=== PATIENT | female | born 1970 | race Caucasian/White ===

== ENCOUNTER 2016-12-26 18:54 | Emergency (ER) | payer BC ==
[~2016-12-26] VITALS: Ht 157.5 cm; Wt 98.1 kg
[2016-12-26 19:45] VITALS: BP 100/58
[2016-12-26 20:12] LABS: Urine Bilirubin Negative (Negative); Urine Blood 2+ /uL (Negative); Urine Ca Oxalate Crystal MANY (None Seen); Urine Color Yellow (Yellow); Urine Glucose Normal (Normal); Urine Ketone Negative (Negative); Urine Mucus MODERATE (None Seen); Urine Nitrite Negative (Negative); Urine RBC 43 /hpf (0 - 4); Urine Squamous Epithelial Cell FEW /hpf (<5); Urine Urobilinogen Normal (Negative)
[2016-12-26 20:50] LABS: Basophils # (auto) 0.1 uL; Basophils % (auto) 0.5 % (0.0-2.0); Eosinophils # (auto) 0.4 uL; Eosinophils % (auto) 2.6 % (0.0-7.0); Hematocrit 40.8 % (36.0-46.0); Hemoglobin 13.1 g/dL (12.2-16.2); Lymphocytes # (auto) 2.5 uL; Lymphocytes % (auto) 16.6 % (10.0-50.0); Mean Corpuscular Hemoglobin 27.4 pg (28.0-32.0); Mean Corpuscular Hgb Conc. 32.1 g/dL (32.0-36.0); Mean Corpuscular Volume 85.4 fL (80.0-100.0); Mean Platelet Volume 7.9 fL (7.4-10.4); Monocytes # (auto) 1.4 uL; Monocytes % (auto) 9.1 % (0.0-12.0); Neutrophils # (auto) 10.6 uL; Neutrophils % (auto) 71.2 % (37.0-80.0); Platelet Count (auto) 412 10^3/uL (140-450); Red Cell Distribution Width 15.3 % (11.6-16.0); White Blood Cell 14.9 10^3/uL (4.4-10.8)
[2016-12-26 20:52] LABS: Albumin 3.5 g/dL (3.4-5.0); BUN/Creatinine Ratio 16.5; Potassium 4.1 mmol/L (3.5-5.1)
[2016-12-26 20:55] LABS: Bilirubin, Total 0.1 mg/dL (0.2-1.0); Total Protein 7.8 g/dL (6.4-8.2)
== END 2016-12-26 23:24 | disposition left against medical advice (07) ==
LOC: ER 19:06
DX: N61.1 Abscess of the breast and nipple (principal); Z53.21 Procedure and treatment not carried out due to patient leaving prior to being seen by health care provider
CPT/HCPCS: 36415; 80053; 80307; 81001; 81025; 85025; 87040

== ENCOUNTER 2016-12-28 16:13 | Inpatient (IN) | payer BC, MEDICAID ==
[~2016-12-28] VITALS: Ht 157.5 cm; Wt 104.0 kg
[2016-12-28] MEDS ORDERED: SODIUM CHLORIDE 0.9% 1,000 ML IV ONE (18:10)
[2016-12-28] MEDS ORDERED: HYDROmorphone HCL 2 MG/ML VL IV ONE ×2 (18:15→21:30)
[2016-12-28] MEDS ORDERED: ONDANSETRON HCL 4 MG/2 ML VIAL IV ONE (18:15)
[2016-12-28] MEDS ORDERED: CLINDAMYCIN 600MG IV 50 ML IV ONE (18:15)
[2016-12-28 19:19] LABS: Basophils # (auto) 0 uL; Basophils % (auto) 0.3 % (0.0-2.0); Eosinophils # (auto) 0.5 uL; Eosinophils % (auto) 4.9 % (0.0-7.0); Hematocrit 37.5 % (36.0-46.0); Hemoglobin 12.2 g/dL (12.2-16.2); Lymphocytes # (auto) 2.1 uL; Lymphocytes % (auto) 21.9 % (10.0-50.0); Mean Corpuscular Hemoglobin 27.7 pg (28.0-32.0); Mean Corpuscular Hgb Conc. 32.4 g/dL (32.0-36.0); Mean Corpuscular Volume 85.3 fL (80.0-100.0); Mean Platelet Volume 7.8 fL (7.4-10.4); Monocytes # (auto) 1.1 uL; Monocytes % (auto) 12.1 % (0.0-12.0); Neutrophils # (auto) 5.8 uL; Neutrophils % (auto) 60.8 % (37.0-80.0); Platelet Count (auto) 456 10^3/uL (140-450); Red Cell Distribution Width 14.3 % (11.6-16.0); White Blood Cell 9.5 10^3/uL (4.4-10.8)
[2016-12-28 19:30] LABS: Albumin 3.2 g/dL (3.4-5.0); Anion Gap 7 (5-15); Aspartate Aminotransferase 16 U/L (15-37); BUN/Creatinine Ratio 13.8; Blood Urea Nitrogen 9 mg/dL (7-18); Calcium 8.6 mg/dL (8.5-10.1); Carbon Dioxide 26 mmol/L (21-32); Chloride 109 mmol/L (98-107); GFR African American 127 mL/min; GFR Non-African American 105 mL/min; Glucose 124 mg/dL (74-106); Potassium 4.1 mmol/L (3.5-5.1); Sodium 142 mmol/L (136-145)
[2016-12-28 19:33] LABS: Alkaline Phosphatase 90 U/L (45-117); Bilirubin, Total < 0.1 mg/dL (0.2-1.0); Total Protein 7.1 g/dL (6.4-8.2)
[2016-12-28] MEDS ORDERED: DEXTROSE (50%) 50ML SYRG IV PRN (23:15)
[2016-12-28] MEDS ORDERED: ONDANSETRON HCL 4 MG/2 ML VIAL IV PRN (23:15)
[2016-12-28] MEDS ORDERED: cefTRIAXone 1GM/50ML D5W 50 ML IV ONE (23:15)
[2016-12-29] VITALS (7 sets, daily range): BP systolic 118–133; BP diastolic 68–78
[2016-12-29] MEDS ORDERED: VANCOMYCIN 1GM/250ML D5W 250 ML IV ONE
[2016-12-29] MEDS: ACCU-CHEK COMFORT CURVE STRIP VI SCH ×2 (00:06→06:00)
[2016-12-29] MEDS: HYDROcodone-ACET 5/325MG TAB PO PRN ×2 (01:16→16:53)
[2016-12-29] MEDS: ACETAMINOPHEN 325 MG TAB PO PRN ×2 (03:36→09:34)
[2016-12-29] MEDS ORDERED: VANCOMYCIN PER PHARMACY 0 MG IV SCH (06:00)
[2016-12-29] MEDS: InsuLIN REG 1unit/0.01ml Soln (100units/ml) SC SCH ×2 (06:00)
[2016-12-29 06:05] LABS: Basophils # (auto) 0 uL; Basophils % (auto) 0.4 % (0.0-2.0); Eosinophils # (auto) 0.4 uL; Eosinophils % (auto) 4.8 % (0.0-7.0); Hematocrit 36.8 % (36.0-46.0); Hemoglobin 11.9 g/dL (12.2-16.2); Lymphocytes # (auto) 1.8 uL; Lymphocytes % (auto) 22.3 % (10.0-50.0); Mean Corpuscular Hemoglobin 27.5 pg (28.0-32.0); Mean Corpuscular Hgb Conc. 32.4 g/dL (32.0-36.0); Mean Corpuscular Volume 84.9 fL (80.0-100.0); Mean Platelet Volume 7.8 fL (7.4-10.4); Monocytes # (auto) 0.9 uL; Monocytes % (auto) 11.2 % (0.0-12.0); Neutrophils % (auto) 61.3 % (37.0-80.0); Platelet Count (auto) 424 10^3/uL (140-450); Red Cell Distribution Width 14.4 % (11.6-16.0); White Blood Cell 8.2 10^3/uL (4.4-10.8)
[2016-12-29 06:27] LABS: Albumin 2.9 g/dL (3.4-5.0); Alkaline Phosphatase 88 U/L (45-117); Anion Gap 10 (5-15); Aspartate Aminotransferase 15 U/L (15-37); BUN/Creatinine Ratio 11.6; Bilirubin, Total < 0.1 mg/dL (0.2-1.0); Blood Urea Nitrogen 8 mg/dL (7-18); Calcium 8.4 mg/dL (8.5-10.1); Carbon Dioxide 24 mmol/L (21-32); Chloride 103 mmol/L (98-107); GFR African American 119 mL/min; GFR Non-African American 98 mL/min; Glucose 155 mg/dL (74-106); Potassium 4.1 mmol/L (3.5-5.1); Sodium 137 mmol/L (136-145); Total Protein 6.8 g/dL (6.4-8.2)
[2016-12-29] MEDS: FAMOTIDINE 20 MG TAB PO SCH ×2 (09:32→22:16)
[2016-12-29] MEDS ORDERED: LOSARTAN POTASSIUM 50 MG TAB PO SCH (10:00)
[2016-12-29] MEDS ORDERED: HCTZ 25 MG TAB PO SCH (10:00)
[2016-12-29] MEDS ORDERED: ENOXAPARIN SOD 40 MG/0.4 ML SYRINGE SC SCH (10:00)
[2016-12-29] MEDS: VANCOMYCIN 1,250 MG in D5W 5% 250 ML IV SCH (12:12)
[2016-12-29 16:21] LABS: INR 0.93 (0.9-1.15); Partial Thromboplastin Time 26.1 sec (22.64-33.71)
[2016-12-29] MEDS: cefTRIAXone 1GM/50ML D5W 50 ML IV SCH (22:16)
[2016-12-29] MEDS: MORPHINE SULF INJ 2 MG/ML SYRINGE 1ML IV PRN (22:38)
[2016-12-30] MEDS: TEMAZEPAM 15 MG CAP PO PRN ×2 (00:03→23:43)
[2016-12-30] MEDS: VANCOMYCIN 1,250 MG in D5W 5% 250 ML IV SCH ×2 (00:03→12:00)
[2016-12-30 07:11] LABS: Basophils # (auto) 0 uL; Basophils % (auto) 0.3 % (0.0-2.0); Eosinophils # (auto) 0.3 uL; Eosinophils % (auto) 3.8 % (0.0-7.0); Hemoglobin 12.2 g/dL (12.2-16.2); Lymphocytes # (auto) 1.7 uL; Mean Corpuscular Hemoglobin 27.9 pg (28.0-32.0); Mean Corpuscular Hgb Conc. 33.1 g/dL (32.0-36.0); Mean Corpuscular Volume 84.3 fL (80.0-100.0); Mean Platelet Volume 7.3 fL (7.4-10.4); Monocytes # (auto) 1.1 uL; Monocytes % (auto) 12.2 % (0.0-12.0); Neutrophils # (auto) 5.8 uL; Neutrophils % (auto) 64.7 % (37.0-80.0); Platelet Count (auto) 446 10^3/uL (140-450); Red Cell Distribution Width 14.6 % (11.6-16.0)
[2016-12-30 07:27] LABS: INR 0.94 (0.9-1.15); Partial Thromboplastin Time 23.8 sec (22.64-33.71); Prothrombin Time 10.1 sec (9.37-12.3)
[2016-12-30 07:31] LABS: BUN/Creatinine Ratio 12.3; Calcium 8.5 mg/dL (8.5-10.1); Potassium 4.3 mmol/L (3.5-5.1)
[2016-12-30 08:00] VITALS: BP 141/90
[2016-12-30 08:32] VITALS: BP 141/90
[2016-12-30] MEDS: FAMOTIDINE 20 MG TAB PO SCH ×2 (08:49→22:00)
[2016-12-30] MEDS ORDERED: ceFAZolin 1GM/50ML D5W 50 ML IV ONE (10:23)
[2016-12-30] MEDS: MORPHINE SULF INJ 2 MG/ML SYRINGE 1ML IV PRN ×3 (12:10→14:55)
[2016-12-30] MEDS ORDERED: MIDAZOLAM HCL 1MG/1ML-2 ML VIAL ONE (13:06)
[2016-12-30] MEDS ORDERED: fentaNYL CITRATE 100 MCG/2 ML VL ONE (13:06)
[2016-12-30] MEDS ORDERED: HYDROmorphone HCL 2 MG/ML VL IV PRN (13:15)
[2016-12-30] MEDS ORDERED: KETOROLAC TROMETH 30 MG/ML 1ML VIAL IV ONE (13:15)
[2016-12-30] MEDS ORDERED: LABETALOL HCL 5 MG/ML 4ML SYRINGE IV PRN (13:15)
[2016-12-30] MEDS ORDERED: ONDANSETRON HCL 4 MG/2 ML VIAL IV ONE (13:15)
[2016-12-30] MEDS ORDERED: MIDAZOLAM HCL 1MG/1ML-2 ML VIAL IV PRN (13:15)
[2016-12-30] MEDS ORDERED: ePHEDrine SULFATE 50 MG/ML AMP IV PRN (13:15)
[2016-12-30] MEDS ORDERED: DEXAMETHASONE SOD PHOS 10MG/1ML VIAL INJ ONE (13:49)
[2016-12-30] MEDS ORDERED: PROPOFOL 10 MG/ML 20 ML IV ONE (13:49)
[2016-12-30 16:23] VITALS: BP_SYST 108; BP_SYST 128; BP_DIAS 70; BP_DIAS 76
[2016-12-30 22:00] VITALS: BP 123/59
[2016-12-30] MEDS: cefTRIAXone 1GM/50ML D5W 50 ML IV SCH (22:00)
[2016-12-31] MEDS: VANCOMYCIN 1,250 MG in D5W 5% 250 ML IV SCH ×2 (00:37→12:00)
[2016-12-31 05:48] VITALS: BP 121/62
[2016-12-31 08:46] LABS: Hematocrit 39.6 % (36.0-46.0); Hemoglobin 13.1 g/dL (12.2-16.2); Mean Corpuscular Hemoglobin 27.9 pg (28.0-32.0); Mean Corpuscular Volume 84.7 fL (80.0-100.0); Mean Platelet Volume 7.4 fL (7.4-10.4); Platelet Count (auto) 469 10^3/uL (140-450); Red Cell Distribution Width 14.7 % (11.6-16.0); SUSPECT VIEW TRANSMISSION; White Blood Cell 22.5 10^3/uL (4.4-10.8)
[2016-12-31 08:53] LABS: Metamyelocytes % 0; Myelocytes % 0; Promyelocytes % 0; Reactive Lymphocytes 0
[2016-12-31 09:00] VITALS: BP 116/81
[2016-12-31] MEDS: FAMOTIDINE 20 MG TAB PO SCH ×2 (10:14→22:57)
[2016-12-31 10:22] LABS: Giant Platelets Few; Platelet Estimate Increased
[2016-12-31 13:00] VITALS: BP 121/62
[2016-12-31 21:51] VITALS: BP 144/52
[2016-12-31] MEDS: cefTRIAXone 1GM/50ML D5W 50 ML IV SCH (22:00)
[2017-01-01] MEDS: VANCOMYCIN 1,250 MG in D5W 5% 250 ML IV SCH ×2 (00:05→12:00)
[2017-01-01 05:04] VITALS: BP 117/77
[2017-01-01 06:27] LABS: Basophils # (auto) 0 uL; Basophils % (auto) 0.3 % (0.0-2.0); Eosinophils # (auto) 0.1 uL; Eosinophils % (auto) 0.7 % (0.0-7.0); Hematocrit 36.2 % (36.0-46.0); Hemoglobin 11.8 g/dL (12.2-16.2); Lymphocytes # (auto) 2.9 uL; Lymphocytes % (auto) 15.7 % (10.0-50.0); Mean Corpuscular Hemoglobin 27.7 pg (28.0-32.0); Mean Corpuscular Hgb Conc. 32.5 g/dL (32.0-36.0); Mean Corpuscular Volume 85.1 fL (80.0-100.0); Mean Platelet Volume 7.4 fL (7.4-10.4); Monocytes # (auto) 1.4 uL; Monocytes % (auto) 7.7 % (0.0-12.0); Neutrophils # (auto) 13.8 uL; Neutrophils % (auto) 75.6 % (37.0-80.0); Platelet Count (auto) 460 10^3/uL (140-450); Red Cell Distribution Width 14.6 % (11.6-16.0); White Blood Cell 18.3 10^3/uL (4.4-10.8)
[2017-01-01 06:49] LABS: BUN/Creatinine Ratio 21.5; Calcium 8.5 mg/dL (8.5-10.1); Potassium 4.1 mmol/L (3.5-5.1)
[2017-01-01 09:00] VITALS: BP 113/71
[2017-01-01] MEDS: FAMOTIDINE 20 MG TAB PO SCH (09:56)
[2017-01-01] MEDS: MORPHINE SULF INJ 2 MG/ML SYRINGE 1ML IV PRN (10:24)
[2017-01-01 13:00] VITALS: BP 135/83
[2017-01-01 17:00] VITALS: BP 123/63
== END 2017-01-01 17:29 | disposition home or self-care (01) | DRG 872 ==
LOC: ER 16:26 → OVERFLOW 16:27 → WEST WING 23:54
PROVIDERS: ADMIT Nurse Practitioner; ATTEND Internal Medicine
PROC: BH40ZZZ Ultrasonography of Right Breast (ICD-10-PCS; 2016-12-29)
PROC: 0H9T3ZZ Drainage of Right Breast, Percutaneous Approach (ICD-10-PCS; principal; 2016-12-30 13:23)
DX: A41.9 Sepsis, unspecified organism (principal); E44.1 Mild protein-calorie malnutrition; Z68.41 Body mass index [BMI] 40.0-44.9, adult; N61.1 Abscess of the breast and nipple; E11.9 Type 2 diabetes mellitus without complications; F15.90 Other stimulant use, unspecified, uncomplicated; I10 Essential (primary) hypertension; E66.01 Morbid (severe) obesity due to excess calories; F19.10 Other psychoactive substance abuse, uncomplicated; Z87.891 Personal history of nicotine dependence
CPT/HCPCS: 36415; 76642; 80048; 80053; 80202; 80307; 82962; 83605; 84702; 85007; 85025; 85027; 85610; 85730; 87040; 87070; 87075; 87205; 93005; 94761; 96365; 96375; 96376; J0690; J0696; J1100; J2250; J2405; J2704; J3490; J7060

== ENCOUNTER 2018-11-13 13:10 | Emergency (ER) | payer BC, MEDICAID ==
[~2018-11-13] VITALS: Ht 157.5 cm; Wt 120.2 kg
[2018-11-13 13:10] VITALS: BP 101/45
== END 2018-11-13 19:54 | disposition left against medical advice (07) ==
LOC: ER 13:17
DX: G89.29 Other chronic pain (principal); M79.10 Myalgia, unspecified site; Z53.21 Procedure and treatment not carried out due to patient leaving prior to being seen by health care provider
CPT/HCPCS: 71045; 93005

== ENCOUNTER 2018-12-01 19:03 | Emergency (ER) | payer BC ==
[~2018-12-01] VITALS: Ht 157.5 cm; Wt 108.9 kg
[2018-12-01 19:20] VITALS: BP 150/73
[2018-12-01 19:45] LABS: Hematocrit 38.2 % (36.0-46.0); Lymphocytes # (auto) 1.7 uL
[2018-12-01 19:46] LABS: Basophils # (auto) 0 uL; Basophils % (auto) 0.4 % (0.0-2.0); Eosinophils # (auto) 0.4 uL; Eosinophils % (auto) 3.5 % (0.0-7.0); Hemoglobin 12.4 g/dL (12.2-16.2); Lymphocytes % (auto) 15.6 % (10.0-50.0); Mean Corpuscular Hemoglobin 26.4 pg (28.0-32.0); Mean Corpuscular Hgb Conc. 32.5 g/dL (32.0-36.0); Mean Corpuscular Volume 81.4 fL (80.0-100.0); Monocytes # (auto) 1.1 uL; Monocytes % (auto) 9.8 % (0.0-12.0); Neutrophils # (auto) 7.8 uL; Neutrophils % (auto) 70.7 % (37.0-80.0); Nucleated Red Blood Cells % 0.1 %; Platelet Count (auto) 352 10^3/uL (140-450); Red Blood Cells 4.69 10^6/uL (4.0-5.20); Red Cell Distribution Width 17.1 % (11.8-14.3); White Blood Cell 11.1 10^3/uL (4.4-10.8)
[2018-12-01 19:56] LABS: Chloride 107 mmol/L (98-107); Potassium 3.6 mmol/L (3.5-5.1); Sodium 138 mmol/L (136-145)
[2018-12-01 19:59] LABS: Albumin 3.5 g/dL (3.4-5.0); Anion Gap 7 (5-15); Blood Urea Nitrogen 13 mg/dL (7-18); Carbon Dioxide 24 mmol/L (21-32); Glucose 164 mg/dL (74-106)
[2018-12-01 20:05] LABS: Alanine Aminotransferase 41 U/L (13-56); Alkaline Phosphatase 108 U/L (45-117); Aspartate Aminotransferase 30 U/L (15-37); BUN/Creatinine Ratio 14.8; Bilirubin, Total 0.2 mg/dL (0.2-1.0); GFR African American 89 mL/min; GFR Non-African American 74 mL/min; Total Protein 7.7 g/dL (6.4-8.2)
[2018-12-01 20:18] LABS: INR 2.08 (0.9-1.15); Prothrombin Time 21.4 sec (9.27-12.13)
== END 2018-12-02 07:20 | disposition left against medical advice (07) ==
LOC: ER 19:03
DX: R10.30 Lower abdominal pain, unspecified (principal); Z53.21 Procedure and treatment not carried out due to patient leaving prior to being seen by health care provider; Z95.1 Presence of aortocoronary bypass graft
CPT/HCPCS: 36415; 74176; 80053; 83880; 84484; 85025; 85610; 85730; 93005

== ENCOUNTER → 2018-12-27 | Outpatient (CLI) | payer BC | END | disposition home or self-care (01) | LOC: Rad HDHVI 13:02 | PROVIDERS: ATTEND Internal Medicine Cardiovascular Disease | DX: I37.1 Nonrheumatic pulmonary valve insufficiency (principal) | CPT/HCPCS: 93306 ==